=== PATIENT | male | born 1980 | race Asian ===

== ENCOUNTER 2021-10-28 08:20 | Emergency (ER) | payer OTHER ==
[~2021-10-28] VITALS: Ht 177.8 cm; Wt 97.7 kg
[~2021-10-28 08:20] MED LIST: MAGIC MOUTH PO
[2021-10-28 08:24] VITALS: TEMP 98.1
[2021-10-28 09:39] VITALS: BP 130/65; PULSE 80
== END 2021-10-28 09:43 | disposition home or self-care (01) ==
LOC: COL.ER 08:20
DX: R05.9 Cough, unspecified (principal)

== ENCOUNTER → 2024-05-06 | Outpatient (CLI) | payer OTHER ==
[~2024-05-06] MED LIST changes: +Albuterol 0.083% Neb Soln 2.5 MG/3 ML UD IH ONE; +CLEOCIN HCL300 MG PO; +Methacholine Vial A (Clear Label Base-Cntrl) IH ONE; +Methacholine Vial B (Red Label) 0.0625 MG/ML 3 ML VIAL.NEB IH ONE; +Methacholine Vial C (Orange Label) 0.25 MG/ML 3 ML VIAL.NEB IH ONE; +Methacholine Vial D (Yellow Label) 1 MG/ML 3 ML VIAL.NEB IH ONE; +Methacholine Vial E (Green Label) 4 MG/ML 3 ML VIAL.NEB IH ONE
== END ==
LOC: COL.CARD 10:19
DX: R06.02 Shortness of breath (principal)
CPT/HCPCS: J7674